=== PATIENT | female | born 1970 | race Caucasian/White ===

== ENCOUNTER 2016-10-27 09:13 | Emergency (ER) | payer MEDICAID ==
[~2016-10-27] VITALS: Ht 152.4 cm; Wt 67.9 kg
[~2016-10-27 09:13] MED LIST: FLUO40CA2 PO; FLUO40CA9 PO; HYDR10TA4 PO; IBUP200T48 PO; NAPR220C2 PO
[2016-10-27 09:38] VITALS: BP 112/73
== END 2016-10-27 10:58 | disposition home or self-care (01) ==
LOC: ED 10:52
DX: M25.511 Pain in right shoulder (principal); G89.11 Acute pain due to trauma
CPT/HCPCS: 99283

== ENCOUNTER 2018-03-17 17:22 | Emergency (ER) | payer MEDICAID ==
[~2018-03-17] VITALS: Ht 149.9 cm; Wt 83.4 kg
[~2018-03-17 17:22] MED LIST changes: -IBUP200T48 PO; +IBUP200T49 PO
[2018-03-17 18:02] LABS: BASOPHILS # (AUTO) 0.02 x10^3/uL (0-0.1); BASOPHILS % (AUTO) 0 % (0-1); EOSINOPHILS # (AUTO) 0.26 x10^3/uL (0-0.4); EOSINOPHILS % (AUTO) 4 % (1-7); LYMPHOCYTES # (AUTO) 1.85 x10^3/uL (1-3.4); LYMPHOCYTES % (AUTO) 30 % (22-44); MD NO; MEAN CORPUSCULAR HEMOGLOBIN 31.4 pg (27.0-34.8); MEAN CORPUSCULAR HGB CONC 34.9 g/dL (32.4-35.8); MEAN PLATELET VOLUME 8.2 fL (7.4-10.4); MONOCYTES # (AUTO) 0.67 x10^3/uL (0.2-0.8); MONOCYTES % (AUTO) 11 % (2-9); NEUTROPHILS # (AUTO) 3.41 x10^3/uL (1.8-6.8); NEUTROPHILS % (AUTO) 55 % (42-75); PLATELET COUNT 255 x10^3/uL (130-400); RED BLOOD COUNT 4.81 x10^6/uL (3.82-5.3)
--- NOTE | 2018-03-17 18:03 | NUR ---
PT TO ROOM FROM LOBBY.
[2018-03-17 18:07] LABS: ALANINE AMINOTRANSFERASE 110 U/L (12-78); ALBUMIN 3.7 g/dL (3.4-5.0); ANION GAP 6 mmol/L (5-15); CALCIUM 8.8 mg/dL (8.5-10.1); CHLORIDE 109 mmol/L (98-107); CREATININE 0.89 mg/dL (0.55-1.02)
--- NOTE | 2018-03-17 18:07 | NUR ---
NVD, EPIGASTRIC ABD CRAMPING SINCE THURSDAY; ZOFRAN & OMEPRAZOLE NO HELP, RIGHT KNEE SURG 1 WK AGO per triage note
[2018-03-17 18:09] LABS: ALKALINE PHOSPHATASE 122 U/L (45-117); BILIRUBIN,TOTAL 0.4 mg/dL (0.2-1.0); TOTAL PROTEIN 7.8 g/dL (6.4-8.2)
[2018-03-17] MEDS ORDERED: ONDA4TAB7 PO (18:22)
--- NOTE | 2018-03-17 18:22 | NUR ---
rt knee with steristrip d/t rt knee surgery one week ago ( ACL Meniscus repair ) pt is using crutches walk.
[2018-03-17] MEDS ORDERED: PROMETHAZINE 25 MG/ML, 1ML ONE (18:24)
[2018-03-17] MEDS ORDERED: PROMETHAZINE 25 MG/ML, 1ML IM ONE (18:30)
--- NOTE | 2018-03-17 18:34 | NUR ---
pt crutch ambulated to bathroom for bm given urine cup and applied white hat for obtaining stool specimen. im phenergan given
--- NOTE | 2018-03-17 18:47 | NUR ---
STOOL WAS COLLECTED BUT UNABLE TO COLLECT URINE FOR NOW
--- NOTE | 2018-03-17 19:39 | NUR ---
URINE COLLECTED/SENT TO LAB. PT WITHOUT N/V FOLLOWING PHENERGAN, STATES EPIGASTRIC PAIN WORSENING. PT HAS BEEN SEEN BY GI CONSULTANTS WITH ENDOSCOPY AND OTHER TESTS. IN PROCESS OF SCHEDULING COLONOSCOPY. CALL LIGHT WITHIN REACH, AWAITING US, UA, CDIFF RESULTS.
[2018-03-17 19:44] LABS: CLOSTRIDIUM DIFFICILE ANTIGEN NEGATIVE; CLOSTRIDIUM DIFFICILE TOXIN NEGATIVE (Negative)
[2018-03-17 20:06] LABS: MICROSCOPIC AUTO
[2018-03-17 20:07] LABS: CULTURE INDICATED? NO
--- NOTE | 2018-03-17 20:13 | NUR ---
ALL RESULTS BACK, PT FOR RECHECK.
[2018-03-17 20:55] VITALS: BP 122/64
== END 2018-03-17 20:57 | disposition home or self-care (01) ==
LOC: ED 20:51
DX: R11.2 Nausea with vomiting, unspecified (principal); R19.7 Diarrhea, unspecified; R10.13 Epigastric pain; R74.8 Abnormal levels of other serum enzymes; F41.1 Generalized anxiety disorder; F32.9 Major depressive disorder, single episode, unspecified; E78.5 Hyperlipidemia, unspecified; J45.909 Unspecified asthma, uncomplicated; Z90.49 Acquired absence of other specified parts of digestive tract
CPT/HCPCS: 36415; 76700; 80053; 81001; 83690; 85025; 87324; 89055; 96372; 99284; J2550

== ENCOUNTER 2018-08-25 12:28 | Emergency (ER) | payer MEDICAID ==
[~2018-08-25] VITALS: Ht 149.9 cm; Wt 80.5 kg
[~2018-08-25 12:28] MED LIST changes: +ONDA4TAB7 PO
--- NOTE | 2018-08-25 13:00 | NUR ---
pt changed into gown, upright on gurney awake, calm & comfortable, c/o VH but responds approp to staff, NAD, comfort measures provided, call light within reach.
[2018-08-25 13:34] LABS: BASOPHILS # (AUTO) 0.03 x10^3/uL (0-0.1); BASOPHILS % (AUTO) 1 % (0-1); EOSINOPHILS # (AUTO) 0.11 x10^3/uL (0-0.4); EOSINOPHILS % (AUTO) 2 % (1-7); LYMPHOCYTES # (AUTO) 2.73 x10^3/uL (1-3.4); LYMPHOCYTES % (AUTO) 40 % (22-44); MD NO; MEAN CORPUSCULAR HEMOGLOBIN 31.1 pg (27.0-34.8); MEAN CORPUSCULAR HGB CONC 33.6 g/dL (32.4-35.8); MEAN CORPUSCULAR VOLUME 92.5 fL (80-100); MEAN PLATELET VOLUME 7.6 fL (7.4-10.4); MONOCYTES # (AUTO) 0.55 x10^3/uL (0.2-0.8); MONOCYTES % (AUTO) 8 % (2-9); NEUTROPHILS # (AUTO) 3.44 x10^3/uL (1.8-6.8); NEUTROPHILS % (AUTO) 50 % (42-75); PLATELET COUNT 253 x10^3/uL (130-400); RED CELL DISTRIBUTION WIDTH 14.3 % (9.6-15.2)
[2018-08-25 13:46] LABS: ALANINE AMINOTRANSFERASE 32 U/L (12-78); ANION GAP 9 mmol/L (5-15); CALCIUM 8.8 mg/dL (8.5-10.1); CHLORIDE 107 mmol/L (98-107); CREATININE 0.61 mg/dL (0.55-1.02)
[2018-08-25 13:48] LABS: ALKALINE PHOSPHATASE 91 U/L (45-117); BILIRUBIN,TOTAL 0.5 mg/dL (0.2-1.0); SALICYLATE LEVEL < 1.7 mg/dL (2.8-20.0); TOTAL PROTEIN 7.5 g/dL (6.4-8.2)
--- NOTE | 2018-08-25 14:05 | NUR ---
pt remains upright on gurcardwell awake, calm & comfortable, responds approp to staff, NAD, comfort measures provided, call light within reach.
[2018-08-25 15:03] LABS: AMPHETAMINE SCREEN, URINE Negative (Negative); BARBITURATE SCREEN, URINE Negative (Negative); BENZODIAZEPINE SCREEN, URINE Negative (Negative); CANNABINOID SCREEN, URINE Negative (Negative); COCAINE SCREEN, URINE Negative (Negative); METHADONE SCREEN, URINE Negative (Negative); OPIATE SCREEN, URINE Negative (Negative)
--- NOTE | 2018-08-25 15:05 | NUR ---
pt upright on gurney with eyes closed but calm & comfortable, responds approp to staff, NAD, comfort measures provided, call light within reach.
--- NOTE | 2018-08-25 16:01 | NUR ---
pt remains upright on lawrencedenver awake, calm & comfortable, [facility] (Nadia) at , responds approp to staff, NAD, comfort measures provided, call light within reach.
--- NOTE | 2018-08-25 17:04 | NUR ---
pt upright on gurney awake, calm & comfortable, watching TV, responds approp to staff, NAD, comfort measures provided, call light within reach.
--- NOTE | 2018-08-25 17:28 | NUR ---
meal tray given, pt belongings in bag x1 placed in locker, pt in safe environment.
--- NOTE | 2018-08-25 17:36 | NUR ---
pt transferred to Rm 02 via indep ambulation, report given to Kianna.
--- NOTE | 2018-08-25 17:45 | NUR ---
PT MOVED TO ED ROOM 2; AMBULATORY W/ STEADY GAIT, CARRYING DINNER TRAY. PT REPORT FROM ISRAEL DICKERSON. PT COOPERATIVE, CALM. PT CARE TO BE ASSUMED BY JOSE MANUEL ESCOBAR RN.
--- NOTE | 2018-08-25 18:02 | NUR ---
BREAK RN: PT IN SECURE ROOM WITH SITTER IN SITE. HAS MEAL TRAY. AWAITING FURTHER DISPOSITION.
--- NOTE | 2018-08-25 18:21 | NUR ---
REPORT TO ADELE WOOD
--- NOTE | 2018-08-25 18:28 | NUR ---
MENSTRUAL PAD PROVIDED TO PT. PT AMBULATORY TO & FROM [facility] W/OUT INCIDENT; GAIT STEADY. SITTER OUTSIDE ROOM.
[2018-08-25 18:44] VITALS: BP 124/74
[2018-08-25] MEDS ORDERED: ALBU8.5H8 INH (18:54)
[2018-08-25] MEDS ORDERED: METF500T17 PO (18:54)
[2018-08-25] MEDS ORDERED: FLUO20TA25 PO (18:54)
[2018-08-25] MEDS ORDERED: AMLO5TAB10 PO (18:54)
[2018-08-25] MEDS ORDERED: OMEG1CAP6 PO (18:54)
[2018-08-25] MEDS ORDERED: PANT40TA5 PO (18:54)
[2018-08-25] MEDS ORDERED: MOME220A10 INH (18:54)
[2018-08-25] MEDS ORDERED: MECL-85 PO (18:54)
[2018-08-25] MEDS ORDERED: LORA10TA41 PO (18:54)
--- NOTE | 2018-08-25 19:03 | NUR ---
pt placed on legal hold. medically cleared by ED . Antwan evtalib completed. Faxed to [facility], [facility], and [facility].
[2018-08-25] MEDS ORDERED: ALPRAZOLAM (19:21)
[2018-08-25] MEDS ORDERED: ATORVASTATIN (19:22)
[2018-08-25] MEDS ORDERED: IBUP-1222 PO (19:22)
--- NOTE | 2018-08-25 19:58 | NUR ---
Accepting doctor Horan. Acceptable [facility].
--- NOTE | 2018-08-25 19:59 | NUR ---
Accepted at [facility]
--- NOTE | 2018-08-25 20:19 | NUR ---
PT TO BE TRANSFERRED TO [facility].
--- NOTE | 2018-08-25 20:31 | NUR ---
PT REPORT TO ISRAEL CARRION AT [facility]
--- NOTE | 2018-08-25 20:32 | NUR ---
[facility] called for transportation to [facility]
--- NOTE | 2018-08-25 21:07 | NUR ---
PT AWAKE, RESTING QUIETLY ON BED, NOTIFIED OF PENDING TRANSFER TO [facility].
--- NOTE | 2018-08-25 21:53 | NUR ---
PT SLEEPING, SIDE RAIL UP X1, SITTER OUTSIDE ROOM. AWAITING TRANSPORT TO [facility].
--- NOTE | 2018-08-25 21:56 | NUR ---
PT REPORT TO ISRAEL CARROLL. PT CARE TRANSFERRED.
--- NOTE | 2018-08-25 21:59 | NUR ---
REPORT FROM ADELE WOOD. PT RESTING WITH NO NEEDS. PT WAITING TO TRANSFER TO [facility]. SITTER IN VIEW OF PT
--- NOTE | 2018-08-25 23:09 | NUR ---
PT SLEEPING. EVEN RISE AND FALL OF CHEST OBSERVED. SITTER IN VIEW OF PT. PT WAITING FOR TRANSFER
--- NOTE | 2018-08-26 00:31 | NUR ---
REPORT [facility] CLAIMS ACCOUNT MANAGER.
== END 2018-08-26 00:33 ==
LOC: ED 14:14
DX: F23 Brief psychotic disorder (principal); F32.9 Major depressive disorder, single episode, unspecified; I10 Essential (primary) hypertension; J45.909 Unspecified asthma, uncomplicated; Z87.891 Personal history of nicotine dependence; Z90.49 Acquired absence of other specified parts of digestive tract
CPT/HCPCS: 36415; 80053; 80307; 85025; 99285